=== PATIENT | female | born 1955 | race Caucasian/White ===

== ENCOUNTER 2018-03-30 15:21 | Emergency (ER) | payer MEDICAID ==
--- NOTE | 2018-03-30 16:29 | ED Physician Chart ---
ED Chief Complaint/HPI - Patient Information Date Seen:: 03/30/18 Time Seen:: 16:00 Chief Complaint:: chest pain History of Present Illness:: She has had sharp nonpleuritic pain under right breast since yesterday. She's had a mild nonproductive cough for 2 days. 5 days ago she had chills and subjective fever. Patient states she gets cold sores three 3-4 times a year Allergies:: Allergies Allergy/AdvReac Type Severity Reaction Status Date / Time No Known Allergies Allergy Verified 03/30/18 15:31 Vitals:: Vital Signs - 8 hr 03/30/18 15:33 Temp 98.1 F HR 85 RR 16 BP 115/80 O2 Sat % 96 Historian:: Patient ED Review of Systems - Review of Systems General/Constitutional: Fever, Chills Skin: No skin lesions Head: No headache Eyes: No loss of vision ENT: No earache Neck: No neck pain Cardio Vascular: Chest pain Pulmonary: Cough GI: No nausea, No vomiting, No diarrhea G/U: No dysuria Musculoskeletal: No bone or joint pain Endocrine: No polyuria Psychiatric: No prior psych history ED Past Medical History - Past Medical History Past Medical History: HTN, Asthma/COPD Family History: HTN Social History: No Alcohol, Other (patient quit smoking 12-14 years ago) Surgical History: other (cervical cancer; bladder suspension) Psychiatricy History: None Family Medical History - Family Member Mother History Unknown: Yes ED Physical Exam - Physical Examination General/Constitutional: Awake, Well-developed, well-nourished Head: Atraumatic Eyes: Lids, conjuctiva normal Skin: Nl inspection, No rash, No skin lesions, No ecchymosis ENMT: External ears, nose nl, Nasal exam nl, Oropharynx nl Other ENMT comments:: crusting cold sores lower and upper lip (lower larger than upper0 Neck: No nuchal rigidity Respiratory: Nl effort/Exclusion, Clear to Auscultation Cardio Vascular: RRR, No murmur, gallop, rubs, NL S1 S2 GI: No tenderness/rebounding/guarding, No organomegaly : No CVA tenderness Extremities: Normal digits & nails Neuro/Psych: No focal deficits ED Labs/Radiology/EKG Results - Lab Results Results: Abnormal Lab Results 03/30/18 03/30/18 03/30/18 17:19 17:19 17:19 WBC 12.1 H RBC 4.61 Hgb 12.7 Hct 39.4 L MCV 85.4 MCH 27.5 MCHC Differential 32.2 RDW 12.4 Plt Count 237 MPV 8.0 Neutrophils % 71.1 Lymphocytes % 16.6 L Monocytes % 11.2 H Eosinophils % 0.7 Basophils % 0.4 Sodium 137 Potassium 3.6 Chloride 99 Carbon Dioxide 28.7 Anion Gap 12.9 BUN 14 Creatinine 0.8 Est GFR ( Amer) > 60.0 Est GFR (Non-Af Amer) > 60.0 BUN/Creatinine Ratio 17.5 Glucose 110 H Calcium 10.1 Magnesium 2.0 Troponin I < 0.01 L - EKG Interpretations Rate & Rhythm: normal sinus rhythm [place]: normal Comments:: Q waves in V1 and V2; inverted T waves in anterior leads ED Assessment - Assessment General Assessment: Since patient has COPD I will prescribe Keflex 500 mg 4 times a day for one week for her cough. First dose to be given in the emergency department before discharge. She will also bel prescribed acyclovir 400 mg #28 to take 1 4 times a day for the first tingling she feels with onset of cold sores. Since currents of cold sores are established patient told not to take acyclovir for this episode. ED Septic Shock - . Is Septic Shock (SBP<90, OR Lactate>4 mmol\L) present?: No - <6hrs of presentation: Vital Signs: Vital Signs - 8 hr 03/30/18 15:33 Temp 98.1 F HR 85 RR 16 BP 115/80 O2 Sat % 96 ED Reassessment (Disposition) - Reassessment Reassessment Condition:: Unchanged - Diagnosis Diagnosis:: Bronchitis; history of COPD; herpes simplex type I - Aftercare/Follow up Instructions Aftercare/Follow-Up Instructions:: Refer to Discharge Instructions Medication Prescribed:: See above - Patient Disposition Discharge/Transfer:: Home Condition at Disposition:: Stable, Unchanged
[2018-03-30 17:25] LABS: % BASOPHILS 0.4 % (0.0-2.0); % EOSINOPHILS 0.7 % (0.0-5.0); % LYMPHOCYTES 16.6 % (20.0-50.0); % MONOCYTES 11.2 % (2.0-10.0); % NEUTROPHILS 71.1 % (40.0-80.0); EOSINOPHILE ABSOLUTE 0.1 Th/cmm (0.1-0.4); HEMATOCRIT 39.4 % (41.0-60); HEMOGLOBIN 12.7 gm/dL (12-16); MEAN CELL VOLUME 85.4 fl (81-100); MEAN CORPUSCULAR HEMOGLOBIN 27.5 pg (27.0-31.0); MEAN CORPUSCULAR HGB CONC 32.2 pg (28.0-36.0); MONOCYTE ABSOLUTE 1.4 Th/cmm (0.3-1.0); NEUTROPHILE ABSOLUTE 8.6 Th/cmm (1.8-8.0); PLATELET COUNT 237 Th/cmm (150-400); RED BLOOD COUNT 4.61 Mil/cmm (3.80-5.10); RED CELL DISTRIBUTION WIDTH 12.4 % (11.5-20.0); WHITE BLOOD COUNT 12.1 Th/cmm (4.8-10.8)
[2018-03-30 17:39] LABS: ANION GAP 12.9 (7.0-16.0); BUN - UREA NITROGEN 14 mg/dL (7-25); CALCIUM SERUM 10.1 mg/dL (8.6-10.3); CARBON DIOXIDE 28.7 mEq/L (21.0-31.0); CHLORIDE 99 mEq/L (98-107); CREATININE - SERUM 0.8 mg/dL (0.6-1.2); GFR AFRICAN-AMERICAN > 60.0 ml/min (>90); GFR NON AFRICAN-AMERICAN > 60.0 ml/min; GLUCOSE 110 mg/dL (70-105); POTASSIUM SERUM 3.6 mEq/L (3.5-5.1); SODIUM SERUM 137 mEq/L (136-145)
[2018-03-30 18:43] LABS: INF A SCREEN NEG FOR INF A
[2018-03-30 18:44] LABS: INF B SCREEN NEG FOR INF B
--- NOTE | 2018-03-31 08:42 | Diagnostic Imaging Report ---
Portable chest x-ray HISTORY: Cough The heart is enlarged. Density is noted in the left lower hemithorax suggesting a small effusion. Underlying infiltrate cannot be excluded. IMPRESSION: 1. Cardiomegaly 2. Increased density within the left lower hemithorax. The findings suggest a probable pleural effusion. Underlying infiltrate/pneumonia cannot be excluded. Clinical correlation is needed.
--- NOTE | 2018-03-31 08:50 | Diagnostic Imaging Report ---
Chest x-ray (single view, lateral view) Cough, shortness of breath Impaired with an earlier AP view, the heart is enlarged. Questionable infiltrate within the left lower lobe. IMPRESSION: 1. Questionable infiltrate left lower lobe 2. No definite pleural fluid identified in the lateral view. 3. Cardiomegaly
== END 2018-03-30 19:15 | disposition home or self-care (01) ==
LOC: ER 15:21
DX: J40 Bronchitis, not specified as acute or chronic (principal); B00.89 Other herpesviral infection; J44.9 Chronic obstructive pulmonary disease, unspecified; I10 Essential (primary) hypertension; Z98.890 Other specified postprocedural states; Z87.891 Personal history of nicotine dependence
CPT/HCPCS: 36415-UA; 71045-TC; 80048-TC; 83735-TC; 84484-TC; 85025-TC; 87804-TC; 93005; Z7502; Z7610

== ENCOUNTER 2018-03-31 11:16 | Emergency (ER) | payer MEDICAID ==
--- NOTE | 2018-03-31 12:00 | ED Physician Chart ---
ED Chief Complaint/HPI - Patient Information Date Seen:: 03/31/18 Time Seen:: 11:28 Chief Complaint:: cough, possible pneumonia History of Present Illness:: cough, possible pneumonia in a patient with cardiomegaly had chest pain yesterday. Allergies:: Allergies Allergy/AdvReac Type Severity Reaction Status Date / Time No Known Allergies Allergy Verified 03/30/18 15:31 Vitals:: Vital Signs - 8 hr 03/31/18 11:28 Temp 98.1 F HR 63 RR 17 BP 131/69 O2 Sat % 97 Historian:: Patient, Family Member Review:: Nurse's Note Reviewed, Old Chart Reviewed ED Review of Systems - Review of Systems General/Constitutional: No fever, No chills, No weight loss, No weakness, No diaphoresis, No edema, No loss of appetite Skin: No skin lesions, No rash, No bruising Head: No headache, No light-headedness Eyes: No loss of vision, No pain, No diplopia ENT: No earache, No nasal drainage, No sore throat, No tinnitus Neck: No neck pain, No swelling, No thyromegaly, No stiffness, No mass noted Cardio Vascular: No chest pain, No palpitations, No PND, No orthopnea, No edema , other (had chest pain yesterday) Pulmonary: SOB, Cough, No sputum, No wheezing GI: No nausea, No vomiting, No diarrhea, No pain, No melena, No hematochezia, No constipation, No hematemesis G/U: No dysuria, No frequency, No hematuria Musculoskeletal: No bone or joint pain, No back pain, No muscle pain Endocrine: No polyuria, No polydipsia Psychiatric: No prior psych history, No depression, No anxiety, No suicidal ideation Hematopoietic: No bruising, No lymphadenopathy Allergic/Immuno: No urticaria, No angioedema Neurological: No syncope, No focal symptoms, No weakness, No paresthesia, No headache, No seizure, No dizziness, No confusion, No vertigo ED Past Medical History - Past Medical History Obtainable: Yes Past Medical History: HTN, Other (enlarged heart) Family Medical History - Family Member Mother History Unknown: Yes ED Physical Exam - Physical Examination General/Constitutional: Awake, Well-developed, well-nourished, Alert, No distress, GCS 15, Non-toxic appearing, Ambulatory Head: Atraumatic Eyes: Lids, conjuctiva normal, PERRL, EOMI Skin: Nl inspection, No rash, No skin lesions, No ecchymosis, Well hydrated, No lymphadenopathy ENMT: External ears, nose nl Neck: Nontender, Full ROM w/o pain, No nuchal rigidity, No mass, No stridor Respiratory: Nl effort/Exclusion, Clear to Auscultation, No Wheeze/Rhonchi/Rales Other Respiratory comments:: decreased breath sounds left lung base Cardio Vascular: RRR, No murmur, gallop, rubs, NL S1 S2 GI: No tenderness/rebounding/guarding, No organomegaly, No hernia, Normal BS's, Nondistended, No mass/bruits, No McBurney tenderness : No CVA tenderness Extremities: No tenderness or effusion, Full ROM, normal strength in all extremities, No edema, Normal digits & nails Neuro/Psych: Alert/oriented, Normal sensory exam, Normal motor strength, Judgement/insight normal, Mood normal, Normal gait, No focal deficits Misc: Normal back ED Assessment - Assessment General Assessment: EKG from 11:50:05 a.m. reveals sinus bradycardia with flipped t waves in V1 to V3. CXR: cardiomegaly with LLL infiltrate. Dr. Marsh: [facility] 1:[address] p.[address] gave report to Dr. Larose who will accept the patient in transfer per insurance request to [facility]. Dr. Toney will be the admitting physician. entry at 15:52 p.m. elevated ddimer of 932. CT angio ordered. Results reveals: no evidence of PE. Minimal left basal nodular infiltrates and consolidative changes. Cardiomegaly, ASVD. Ectatic aorta 4 cm. ? LUQ gastric diverticulum. ED Septic Shock - . Is Septic Shock (SBP<90, OR Lactate>4 mmol\L) present?: No - <6hrs of presentation: Vital Signs: Vital Signs - 8 hr 03/31/18 11:28 Temp 98.1 F HR 63 RR 17 BP 131/69 O2 Sat % 97 ED Reassessment (Disposition) - Reassessment Reassessment Condition:: Improved - Diagnosis Diagnosis:: Shortness of breath Pneumonia Cardiomegaly Leukocytosis Elevated ddimer--negative CTA for PE. - Patient Disposition Discharge/Transfer:: Acute Care (other hosp) Condition at Disposition:: Stable, Improved
[2018-03-31 12:09] LABS: % BASOPHILS 0.8 % (0.0-2.0); % LYMPHOCYTES 18.1 % (20.0-50.0); % MONOCYTES 10.9 % (2.0-10.0); % NEUTROPHILS 68.2 % (40.0-80.0); BASOPHILE ABSOLUTE 0.1 Th/cumm (0-0.2); EOSINOPHILE ABSOLUTE 0.2 Th/cmm (0.1-0.4); HEMATOCRIT 35.8 % (41.0-60); HEMOGLOBIN 11.9 gm/dL (12-16); LYMPHOCYTE ABSOLUTE 2.1 Th/cmm (1.5-3.0); MEAN CELL VOLUME 82.4 fl (81-100); MEAN CORPUSCULAR HEMOGLOBIN 27.4 pg (27.0-31.0); MEAN CORPUSCULAR HGB CONC 33.2 pg (28.0-36.0); MONOCYTE ABSOLUTE 1.3 Th/cmm (0.3-1.0); NEUTROPHILE ABSOLUTE 7.9 Th/cmm (1.8-8.0); PLATELET COUNT 230 Th/cmm (150-400); RED BLOOD COUNT 4.35 Mil/cmm (3.80-5.10); RED CELL DISTRIBUTION WIDTH 12.8 % (11.5-20.0); WHITE BLOOD COUNT 11.6 Th/cmm (4.8-10.8)
--- NOTE | 2018-03-31 12:48 | Diagnostic Imaging Report ---
CHEST X-RAY: 2 views INDICATION: Left lower lobe pneumonia COMPARISON: 03/30/2018 FINDINGS: Left lower lobe infiltrate/pneumonia is noted. There may be a small left effusion. Cardiomegaly is noted. IMPRESSION: Left lower lobe infiltrate/pneumonia. Cardiomegaly.
[2018-03-31 13:28] LABS: ALB/GLOB RATIO 1.4 (1.0-1.8); ALKALINE PHOSPHATASE 54 U/L (34-104); ANION GAP 13.6 (7.0-16.0); BILIRUBIN,TOTAL 0.5 mg/dL (0.3-1.0); BUN - UREA NITROGEN 16 mg/dL (7-25); CALCIUM SERUM 9.7 mg/dL (8.6-10.3); CHLORIDE 98 mEq/L (98-107); CREATININE - SERUM 0.9 mg/dL (0.6-1.2); GFR AFRICAN-AMERICAN > 60.0 ml/min (>90); GFR NON AFRICAN-AMERICAN > 60.0 ml/min; GLUCOSE 107 mg/dL (70-105); MAGNESIUM 1.9 mg/dL (1.9-2.7); POTASSIUM SERUM 3.6 mEq/L (3.5-5.1); SGOT 16 U/L (13-39); SGPT/ALT 13 U/L (7-52); SODIUM SERUM 134 mEq/L (136-145); TOTAL PROTEIN,SERUM 6.9 gm/dL (6.0-8.3)
[2018-03-31] MEDS ORDERED: Lactated Ringer 1,000 ML IV ONE ×3 (14:02→15:10)
[2018-03-31 14:12] LABS: URINE SOURCE CLEAN C
[2018-03-31 14:14] LABS: URINE BILIRUBIN NEGATIVE (NEGATIVE); URINE BLOOD NEGATIVE (NEGATIVE); URINE GLUCOSE (UA) NEGATIVE (NEGATIVE); URINE KETONE NEGATIVE (NEGATIVE); URINE LEUKOCYTE ESTERASE SMALL (NEGATIVE); URINE NITRATE NEGATIVE (NEGATIVE); URINE PH 6.5 (4.6 - 8.0); URINE PROTEIN NEGATIVE (NEGATIVE); URINE UROBILINOGEN 0.2 E.U./dL (0.2 - 1.0)
[2018-03-31 14:25] LABS: URINE CLARITY CLEAR (CLEAR); URINE COLOR YELLOW; URINE MICROSCOPIC INDICATED? YES
[2018-03-31 14:28] LABS: URINE BACTERIA 1+ /hpf (NONE SEEN); URINE EPITHELIAL CELLS MODERATE /lpf (FEW); URINE RBC 0-2 /hpf (0-5)
[2018-03-31] MEDS ORDERED: IOHEXOL 350mgI/mL 150mL IV ONE (16:30)
--- NOTE | 2018-04-01 10:09 | Diagnostic Imaging Report ---
CT Chest PE study Indication: Shortness of breath, elevated d-dimer Comparison: Chest x-ray 03/31/2018, Technique: Axial images were obtained from the base of the neck to the upper abdomen, following administration of IV contrast, PE protocol. Multiplanar reconstructions were made. total DLP: 265, [id number] FINDINGS: There is no evidence of mediastinal lymphadenopathy. Ectatic aorta is noted measuring up to 3.8 cm. Moderate Atherosclerosis is noted including coronary artery calcifications. Cardiomegaly is noted. No pericardial effusion identified. Evaluation of the pulmonary arterial vasculature demonstrates no evidence of pulmonary embolus. Evaluation of lungs demonstrates mild chronic lung changes. Atelectatic and hypoventilatory changes of the lungs are also noted. There are minimal consolidative changes of the lingula with few nodular infiltrates measuring up to 3 mm. No pleural effusions. The upper abdomen demonstrate atherosclerosis. There may be a gastric diverticulum along the fundus. Degenerative changes of the spine are noted. IMPRESSION: No evidence of pulmonary embolus. Mild left lingular consolidative changes and few nodular infiltrates primarily along the lingula measuring up to 3 mm. Clinical correlation and follow-up is recommended to ensure resolution. Cardiomegaly with moderate atherosclerosis including coronary artery calcifications. Ectatic aorta is also noted measuring up to 3.8 cm Possible gastric diverticulum along the left upper quadrant.
== END 2018-03-31 19:48 | disposition short-term general hospital (02) ==
LOC: ER 11:16
DX: J18.9 Pneumonia, unspecified organism (principal); I51.7 Cardiomegaly; D72.829 Elevated white blood cell count, unspecified; R79.89 Other specified abnormal findings of blood chemistry; I10 Essential (primary) hypertension
CPT/HCPCS: 99285; 96365; 93005; 71046; 71275; 84484 ×2; 36415; 85379; 85025; 81001; 83735; 84100; 80053; 87040 ×2; J3490; J7121

== ENCOUNTER 2018-09-08 08:15 | Emergency (ER) | payer MEDICAID ==
[2018-09-08] MEDS ORDERED: Acetaminophen 500 MG TAB PO ONE (08:54)
[2018-09-08] MEDS ORDERED: Acetaminophen 500 MG TAB ONE (08:58)
[2018-09-08 09:08] LABS: HEMATOCRIT 37.4 % (41.0-60); RED BLOOD COUNT 4.43 Mil/cmm (3.80-5.10)
[2018-09-08 09:10] LABS: HEMOGLOBIN 12.6 gm/dL (12-16); MEAN CELL VOLUME 84.5 fl (81-100); MEAN CORPUSCULAR HEMOGLOBIN 28.5 pg (27.0-31.0); MEAN CORPUSCULAR HGB CONC 33.7 pg (28.0-36.0); PLATELET COUNT 224 Th/cmm (150-400)
[2018-09-08 09:12] LABS: WHITE BLOOD COUNT 15.4 Th/cmm (4.8-10.8)
[2018-09-08 09:18] LABS: INR 0.92 (0.5-1.4)
[2018-09-08 09:20] LABS: ALB/GLOB RATIO 1.6 (1.0-1.8); ALBUMIN 4.3 gm/dL (3.7-5.3); ALKALINE PHOSPHATASE 56 U/L (34-104); ANION GAP 13.5 (7.0-16.0); BILIRUBIN,TOTAL 0.7 mg/dL (0.3-1.0); BUN - UREA NITROGEN 10 mg/dL (7-25); CALCIUM SERUM 9.8 mg/dL (8.6-10.3); CARBON DIOXIDE 24.2 mEq/L (21.0-31.0); CHLORIDE 103 mEq/L (98-107); CREATININE - SERUM 0.8 mg/dL (0.6-1.2); GFR AFRICAN-AMERICAN > 60.0 ml/min (>90); GFR NON AFRICAN-AMERICAN > 60.0 ml/min; GLUCOSE 146 mg/dL (70-105); POTASSIUM SERUM 3.7 mEq/L (3.5-5.1); SGOT 16 U/L (13-39); SGPT/ALT 13 U/L (7-52); SODIUM SERUM 137 mEq/L (136-145)
--- NOTE | 2018-09-08 09:33 | ED Physician Chart ---
ED Chief Complaint/HPI - Patient Information Date Seen:: 09/08/18 Time Seen:: 09:07 Chief Complaint:: cough History of Present Illness:: this is a 63 yo female with two days of a sore throat, cough, fever,chills and chest congestion. she has a history of copd Allergies:: Allergies Allergy/AdvReac Type Severity Reaction Status Date / Time No Known Allergies Allergy Verified 03/30/18 15:31 Vitals:: Vital Signs - 8 hr 09/08/18 08:32 Temp 102.4 F HR 86 RR 18 BP 137/81 O2 Sat % 95 Historian:: Patient Review:: Nurse's Note Reviewed, Old Chart Reviewed ED Review of Systems - Review of Systems General/Constitutional: Fever, Chills, No weight loss, No weakness, No diaphoresis, No edema, No loss of appetite Skin: No skin lesions, No rash, No bruising Head: No headache, No light-headedness Eyes: No loss of vision, No pain, No diplopia ENT: No earache, No nasal drainage, Sore throat, No tinnitus Neck: No neck pain, No swelling, No thyromegaly, No stiffness, No mass noted Cardio Vascular: No chest pain, No palpitations, No PND, No orthopnea, No edema Pulmonary: No SOB, Cough, No sputum, No wheezing GI: No nausea, No vomiting, No diarrhea, No pain, No melena, No hematochezia, No constipation, No hematemesis G/U: No dysuria, No frequency, No hematuria Musculoskeletal: No bone or joint pain, No back pain, No muscle pain Endocrine: No polyuria, No polydipsia Psychiatric: No prior psych history, No depression, No anxiety, No suicidal ideation Hematopoietic: No bruising, No lymphadenopathy Allergic/Immuno: No urticaria, No angioedema Neurological: No syncope, No focal symptoms, No weakness, No paresthesia, No headache, No seizure, No dizziness, No confusion, No vertigo ED Past Medical History - Past Medical History Obtainable: Yes Past Medical History: HTN, Asthma/COPD, Other (depression) Family History: None Social History: Non Smoker, No Alcohol, No Drug Use, Employed Surgical History: Hysterectomy Psychiatricy History: None Medication: Reviewed Family Medical History - Family Member Mother History Unknown: Yes ED Physical Exam - Physical Examination General/Constitutional: Awake, Well-developed, well-nourished, Alert, No distress, GCS 15, Non-toxic appearing, Ambulatory Head: Atraumatic Eyes: Lids, conjuctiva normal, PERRL, EOMI Skin: Nl inspection, No rash, No skin lesions, No ecchymosis, Well hydrated, No lymphadenopathy ENMT: External ears, nose nl, Nasal exam nl, Lips, teeth, gums nl, Oropharynx nl (the posterior pharynx is red and swollen with tenderness) Neck: Nontender, Full ROM w/o pain, No JVD, No nuchal rigidity, No bruit, No mass, No stridor Respiratory: Nl effort/Exclusion, Clear to Auscultation, No Wheeze/Rhonchi/ Rales (bilateral rhonchi are heard) Cardio Vascular: RRR, No murmur, gallop, rubs, NL S1 S2 GI: No tenderness/rebounding/guarding, No organomegaly, No hernia, Normal BS's, Nondistended, No mass/bruits, No McBurney tenderness : No CVA tenderness Extremities: No tenderness or effusion (left lower extremity tenderness), Full ROM, normal strength in all extremities, No edema, Normal digits & nails Neuro/Psych: Alert/oriented, DTR's symmetric, Normal sensory exam, Normal motor strength, Judgement/insight normal, Mood normal, Normal gait, No focal deficits Misc: Normal back, No paraspinal tenderness ED Labs/Radiology/EKG Results - Lab Results Results: Laboratory Tests 09/08/18 09/08/18 09/08/18 09:00 09:00 09:00 WBC 15.4 H RBC 4.43 Hgb 12.6 Hct 37.4 L MCV 84.5 MCH 28.5 MCHC Differential 33.7 RDW 13.0 Plt Count 224 MPV 8.1 Add Manual Diff YES PT 9.6 INR 0.92 PTT (Actin FS) 32.8 Sodium 137 Potassium 3.7 Chloride 103 Carbon Dioxide 24.2 Anion Gap 13.5 BUN 10 Creatinine 0.8 Est GFR ( Amer) > 60.0 Est GFR (Non-Af Amer) > 60.0 BUN/Creatinine Ratio 12.5 Glucose 146 H Calcium 9.8 Total Bilirubin 0.7 AST 16 ALT 13 Alkaline Phosphatase 56 Troponin I Total Protein 7.0 Albumin 4.3 Globulin 2.7 Albumin/Globulin Ratio 1.6 09/08/18 09:00 WBC RBC Hgb Hct MCV MCH MCHC Differential RDW Plt Count MPV Add Manual Diff PT INR PTT (Actin FS) Sodium Potassium Chloride Carbon Dioxide Anion Gap BUN Creatinine Est GFR ( Amer) Est GFR (Non-Af Amer) BUN/Creatinine Ratio Glucose Calcium Total Bilirubin AST ALT Alkaline Phosphatase Troponin I 0.02 Total Protein Albumin Globulin Albumin/Globulin Ratio - Radiology Results Results: ultrasoun of the left lower extremity = neg for dvt chest x-ray = cm - EKG Interpretations EKG Time:: 09:04 Rate & Rhythm: rate= 73, sinus Herreid: right axis ED Assessment - Assessment General Assessment: acute pharynitis acute bronchitis ED Septic Shock - . Is Septic Shock (SBP<90, OR Lactate>4 mmol\L) present?: No - <6hrs of presentation: Vital Signs: Vital Signs - 8 hr 09/08/18 08:32 Temp 102.4 F HR 86 RR 18 BP 137/81 O2 Sat % 95 ED Reassessment (Disposition) - Reassessment Reassessment Condition:: Improved - Diagnosis Diagnosis:: bronchitis pharyngitis - Aftercare/Follow up Instructions Aftercare/Follow-Up Instructions:: Counseled pt regarding lab results/diagnosis & need follow up, Refer to Discharge Instructions, Counseled pt & family regarding lab results/diagnosis & need follow up Medication Prescribed:: [id number], prednisone - Patient Disposition Discharge/Transfer:: Home Condition at Disposition:: Improved
--- NOTE | 2018-09-08 10:18 | Diagnostic Imaging Report ---
Portable chest x-ray HISTORY: Cough Compared with the prior exam generous 2018, there is marked cardiomegaly. Poor visualization of the left lower lobe which may be related to overlying breast tissue. If possible a lateral view would provide additional assessment. No hilar or mediastinal abnormalities. IMPRESSION: 1. Poor visualization of the left lower lobe which may be related to overlying breast tissue. If possible, a lateral view would provide additional clarification. 2. Marked cardiomegaly
--- NOTE | 2018-09-08 10:24 | Diagnostic Imaging Report ---
Left lower extremity Doppler venous ultrasound exam HISTORY: Pain/swelling Sonographic sector images were obtained through the deep venous systems of the left leg. Associated Doppler data was obtained. The exam demonstrates patency of the common femoral, superficial femoral, popliteal, and posterior tibial veins. Specifically, no thrombus is seen. There are normal compressibility and augmentation responses. IMPRESSION: Negative exam for deep vein thrombophlebitis.
[2018-09-08] MEDS ORDERED: Sodium Chloride 0.45% 1,000 ML IV ONE (10:26)
[2018-09-08] MEDS ORDERED: Sodium Chloride 0.9% 1,000 ML IV ONE (10:29)
[2018-09-08 11:12] LABS: BAND NEUTROPHILE 1 % (0-10); BASOPHIL 0 % (0-3); EOSINOPHIL 0 % (0-5); LYMPHOCYTE 10 % (20-50); MONOCYTE 6 % (2-10); NEUTROPHILS 83 % (40-80)
== END 2018-09-08 11:25 | disposition home or self-care (01) ==
LOC: ER 08:15
DX: J40 Bronchitis, not specified as acute or chronic (principal); J02.9 Acute pharyngitis, unspecified; I10 Essential (primary) hypertension; J44.9 Chronic obstructive pulmonary disease, unspecified; Z90.710 Acquired absence of both cervix and uterus
CPT/HCPCS: 99284; 96372; 93005; 93971; 71045; 84484; 36415; 83605; 84443; 85007; 85025; 85610; 85730; 80053; 87040 ×2; J0696; J7030; Z7610